=== PATIENT | male | born 1980 | race Caucasian/White ===

== ENCOUNTER 2016-11-04 23:37 | Emergency (ER) | payer MEDICAID ==
[~2016-11-04] VITALS: Ht 177.8 cm; Wt 72.6 kg
[2016-11-04 23:37] VITALS: BP_SYST 158
[2016-11-05 00:25] VITALS: BP_SYST 158
== END 2016-11-05 00:25 | disposition home or self-care (01) ==
LOC: SED 23:37
DX: N44.2 Benign cyst of testis (principal)
CPT/HCPCS: 99283